=== PATIENT | female | born 1935 | race African-American/Black ===

== ENCOUNTER → 2016-09-18 | Outpatient (CLI) | payer OTHER ==
[~2016-09-18] VITALS: Ht 165.1 cm; Wt 81.4 kg
[~2016-09-18] MED LIST: ACETAMINOPHEN-1 EAC1 PO; CALCIUM + D SO1 EACH PO; GABAPENTIN100 MG PO; JANUVIA25 MG OR; LORTAB 5 MG/5001 TA1 PO; METFORMIN HCL500 MG PO; METFORMIN OR; SYNTHROID OR; SYNTHROID88 MCG PO; TRAMADOL 50 MG50 MG PO; VITAMIN B-12500 MCG SUBLING; WOMEN'S DAILY1 EACH PO
--- NOTE | ~2016-09-18 | HPC ---
[facility] [place] [address] PAIN MANAGEMENT CONSULTATION Name: MARY STRONG Room #: REG VALENTE TrentSarahTrent#: [id number] Admission: 09/18/16 Attend Phys: Tal Miller DO Discharge: Date of : 35 Report #: [id number] THIS REPORT FOR: //name// CC: Tal Mello DO DATE OF SERVICE: 09/18/2016 REFERRING PHYSICIAN: Dr. Koby Mello DATE OF SERVICE: 09/18/2016. CHIEF COMPLAINT: Low back pain, left lower extremity pain and paresthesias. HISTORY OF PRESENT ILLNESS: As you know, patient is a very pleasant 81-year-old female returning in followup visit reporting pain score of 8/10. States her pain is exacerbated with standing and walking, improves with medications. She underwent an epidural injection in 11/2015 with 95% improvement in overall pain lasting for nearly 7 months. She returns today requesting next in the series of epidural injections in hopes of improving pain further. She denies new injury, new trauma to her low back or lower extremity that may have led to symptoms. She also denies any changes in her medical history since her last visit. ALLERGIES: DOXYCYCLINE. CURRENT MEDICATIONS: Cyanocobalamin, multivitamin, calcium carbonate, metformin, tramadol, gabapentin, Januvia. SOCIAL HISTORY: The patient denies tobacco, alcohol or IV or illicit drug use. She is retired, unaccompanied today. IMAGING: No new imaging available. PHYSICAL EXAMINATION: VITAL SIGNS: Blood pressure 137/111, pulse is 103, respiratory rate 14 and unlabored. The patient 99% on room air. Height 5 feet 5 inches tall, weight 179.4 pounds, BMI calculated 29.9. GENERAL: Well-developed, well-nourished, well-hydrated 81-year-old female appearing stated age, placing current pain score 8/10. HEENT: Normocephalic, atraumatic. Pupils equal, round, reactive to light. EXTREMITIES: Show no clubbing, no cyanosis, no edema. MUSCULOSKELETAL: Lower extremity strength is symmetrical, but diminished. Seated straight leg raising negative. Supine straight leg raising possible left. Gera's test negative. Gait is antalgic favoring left lower extremity over right. Muscle bulk and tone appears equal and symmetrical. [address] [address] PAIN MANAGEMENT CONSULTATION Name: TAEMARY Room #: REG ARVINDLuke Aparicio#: [id number] Admission: 09/18/16 Attend Phys: Tal Miller DO Discharge: Date of : 35 Report #: [id number] ASSESSMENT: 1. Symptomatic lumbar radiculopathy. 2. 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 3. Displacement of lumbar intervertebral disk with radiculopathy. 4. Lumbosacral spondylosis with radiculopathy. 5. Lumbar degeneration. 6. Essential hypertension. 7. Chronic intractable pain. PLAN: 1. The patient returns today in followup visit having noted excellent benefit with the initial epidural injection. She returns today hoping to undergo the next in the series to build on success of previous intervention. The patient denies new injury, new trauma that may have lead to progression of symptoms. She is placing current pain score at 8/10. She is requesting, we will perform an epidural injection today. She was advised the risks and benefits of procedure, states she understood and wished to proceed. 2. The patient's blood pressure is noted to be quite elevated today, blood pressure is 137/100. During her previous visit with the patient, her blood pressure was 155/84. I have recommended to the patient that she return to see her primary care physician immediately, have adjustments made in her essential hypertensive medications. 3. We will see the patient back in followup visit on an as needed basis for hopeful she will see similar improvement with today's epidural injection, returning only on an as needed basis. PROCEDURE NOTE DESCRIPTION OF PROCEDURE: Lumbar epidural steroid injection under fluoroscopic guidance. This is the second procedure of the first series that the patient is undergoing. After obtaining written consent, the patient was taken back to the fluoroscopy suite, placed in a prone position with pillow under the abdomen to decrease lumbar lordosis. The skin overlying the lumbosacral area was then prepped and draped in aseptic fashion. The lumbar vertebral interspace was then identified by AP fluoroscopy. The skin and subcutaneous tissue overlying the target site of injection was anesthetized with 3 mL 1% lidocaine. A 20-guage 3.5 inch Tuohy needle was then advanced under fluoroscopic guidance towards the epidural space using a left paramedian approach. The epidural space was identified using loss of resistance to air technique. After negative aspiration for heme or cerebrospinal fluid, a total of 1 mL of Omnipaque was injected. A lumbar epidurogram was confirmed using both AP and lateral [address] [address] PAIN MANAGEMENT CONSULTATION Name: MARY STRONG Room #: REG VALENTE Aparicio#: [id number] Admission: 09/18/16 Attend Phys: Tal Miller DO Discharge: Date of : 35 Report #: [id number] fluoroscopy. After negative aspiration for heme or cerebrospinal fluid, 5 mL of a solution containing 2 mL 40 mg per mL, 80 mg total triamcinolone, 3 mL lidocaine 1% was injected in increments. Contrast spread was noted posterior epidural space. The needle was then retracted approximately half way and needle tract flushed with 1 mL of 1% lidocaine. Needle was then removed. There were no apparent sensory or motor deficits in the lower extremity following the procedure. A sterile bandage was placed over the injection site. The heart rate, pulse, oximetry and blood pressure were continuously monitored after the procedure. There were no apparent complications. The patient tolerated the procedure well and was carefully escorted to the recovery room in stable condition. There were no apparent complications. After meeting discharge criteria, the patient was then discharged home. <ELECTRONICALLY SIGNED> By: Tal Miller DO 10/08/16 [id number] Tal Miller DO /nt
[2016-09-18 13:04] VITALS: BP 137/111
== END | disposition home or self-care (01) ==
LOC: PAIN 06:38
DX: M51.16 Intervertebral disc disorders with radiculopathy, lumbar region (principal); M48.06 Spinal stenosis, lumbar region; M47.27 Other spondylosis with radiculopathy, lumbosacral region; G89.29 Other chronic pain; I10 Essential (primary) hypertension